=== PATIENT | male | born 1980 | race Caucasian/White ===

== ENCOUNTER 2018-11-24 15:44 | Emergency (ER) | payer BC ==
[~2018-11-24] VITALS: Ht 170.2 cm; Wt 93.2 kg
[2018-11-24 15:54] VITALS: TEMP 97.9
[2018-11-24 16:20] LABS: COLLECTION METHOD CLEAN CATCH
[2018-11-24 16:30] LABS: MUCOUS Present /lpf; PH 6 (5-8); SQUAMOUS EPITHELIAL None Seen /hpf; URINE APPEARANCE Clear; URINE BACTERIA None Seen /hpf; URINE BILIRUBIN Negative (NEGATIVE); URINE BLOOD Negative (NEGATIVE); URINE COLOR Yellow; URINE GLUCOSE Negative (NEGATIVE); URINE KETONE Negative (NEGATIVE); URINE LEUKOCYTE ESTERASE Negative (NEGATIVE); URINE NITRATE Negative (NEGATIVE); URINE PROTEIN(semi-quant) Negative (NEGATIVE); URINE RBC 0-2 /hpf; URINE UROBILINOGEN Negative (NEGATIVE)
[2018-11-24] MEDS ORDERED: CIPRO 500MG TA500 MG PO (18:26)
[2018-11-24 18:48] VITALS: BP 130/80; PULSE 70
== END 2018-11-24 18:49 | disposition home or self-care (01) ==
LOC: COL.ER 15:44
PROVIDERS: Emergency Medicine
DX: N50.811 Right testicular pain (principal)

== ENCOUNTER → 2018-12-19 | Outpatient (CLI) | payer BC ==
[~2018-12-19] MED LIST: CIPRO 500MG TA500 MG PO
== END ==
LOC: COL.RAD 07:03
DX: N50.89 Other specified disorders of the male genital organs (principal); N50.811 Right testicular pain; N50.3 Cyst of epididymis; N43.3 Hydrocele, unspecified; I86.1 Scrotal varices